=== PATIENT | male | born 1950 | race African-American/Black ===

== ENCOUNTER 2020-02-14 06:24 | Emergency (ER) | payer OTHER ==
[~2020-02-14] VITALS: Ht 182.9 cm; Wt 81.8 kg
[2020-02-14 06:54] LABS: CALCIUM 8.9 mg/dL (8.5-10.1); CREATININE 0.9 mg/dL (0.7-1.3); GFR 83.9; POTASSIUM 4.4 mmol/L (3.5-5.1)
[2020-02-14 06:59] LABS: ALBUMIN 4.1 g/dL (3.4-5.0); ALBUMIN/GLOBULIN RATIO 1.3 (1.0-1.7); TOTAL BILIRUBIN 1.1 mg/dL (0.2-1.0); TOTAL PROTEIN 7.3 g/dL (6.4-8.2)
[2020-02-14 07:21] LABS: BASO % 1 % (0-3); EOS # 0.1 x10^3/uL (0.0-0.7); EOS % 2 % (0-3); HEMATOCRIT 43.3 % (39.0-53.0); HEMOGLOBIN 15.2 g/dL (13.0-17.5); LYMPH # 1.8 x10^3/uL (1.0-4.8); LYMPH % 31 % (24-48); MEAN CORPUSCULAR HEMOGLOBIN 31 pg (25-35); MEAN CORPUSCULAR HGB CONC 35 g/dL (31-37); MEAN CORPUSCULAR VOLUME 89 fL (79-100); MONO # 0.6 x10^3/uL (0.0-1.1); MONO % 10 % (0-9); NEUT # 3.3 x10^3/uL (1.8-7.7); NEUT % 57 % (31-73); PLATELET COUNT 127 x10^3/uL (140-400); RED BLOOD COUNT 4.84 x10^6/uL (4.30-5.70); RED CELL DISTRIBUTION WIDTH 13.6 % (11.5-14.5); WHITE BLOOD COUNT 5.8 x10^3/uL (4.0-11.0)
[2020-02-14] MEDS ORDERED: IOHEXOL 300 MG/ML 100ML VIAL. IV ONE (07:30)
[2020-02-14] MEDS ORDERED: CONTRAST GIVEN. MC PRN (07:30)
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
[2020-02-14 08:06] LABS: PROTHROMBIN TIME PATIENT 12.9 SEC (11.7-14.0)
[2020-02-14 08:13] VITALS: BP 162/80
== END 2020-02-14 08:20 | disposition home or self-care (01) ==
LOC: ER 06:24
DX: R07.89 Other chest pain (principal); R10.9 Unspecified abdominal pain; R51.9 Headache, unspecified; M54.2 Cervicalgia; G89.11 Acute pain due to trauma; I10 Essential (primary) hypertension; V49.49XA Driver injured in collision with other motor vehicles in traffic accident, initial encounter; Y92.481 Parking lot as the place of occurrence of the external cause; Y93.89 Activity, other specified; Y99.8 Other external cause status
CPT/HCPCS: 36415; 70450; 71260; 72125; 74177; 80053; 85025; 85610; 85730; 99285; Q9967